=== PATIENT | female | born 1975 | race Caucasian/White ===

== ENCOUNTER 2016-12-27 19:04 | Inpatient (IN) | payer OTHER ==
[2016-12-27] MEDS ORDERED: NS 1,000 ML IV ONE (19:13)
--- NOTE | 2016-12-27 19:15 | EDPHY ---
H & P Time Seen by Provider: 12/27/16 19:13 HPI/ROS: CHIEF COMPLAINT: Abdominal pain HISTORY OF PRESENT ILLNESS: This patient is a 41-year-old female who presents to the Emergency Department complaining of acute onset of severe abdominal pain beginning after dinner tonight. Immediately after eating 1 slice of pizza, she had sudden onset of severe generalized abdominal pain. She describes the pain as waxing and waning over time, sharp in nature, and migrating throughout her abdomen with radiation bilaterally to her back. She reports associated nausea but no vomiting. She also describes a cold sweat at 1830 associated with the pain. Prior x2, no prior small-bowel obstruction. Denies diarrhea, fever, dysuria, recent infection, or any additional complaints. IUD in place, LNMP two weeks ago. She is currently breast-feeding. REVIEW OF SYSTEMS: Constitutional: No fever, no chills Eyes: No visual changes ENT: No sore throat Respiratory: No cough, no shortness of breath Cardiac: No chest pain Gastrointestinal: As in HPI Genitourinary: No hematuria, no dysuria Musculoskeletal: No leg pain or swelling Skin: No rash Neurological: No headache, no weakness Psychiatric: No depression Past Medical/Surgical History: Two prior C-sections; no additional abdominal surgeries. Social History: at bedside. Smoking Status: Never smoked Physical Exam: General Appearance: Alert, appears in pain Eyes: Pupils equal and round, no conjunctival pallor or injection ENT, Mouth: Mucous membranes moist Neck: Normal inspection Respiratory: Lungs are clear to auscultation Cardiovascular: Regular rate and rhythm Gastrointestinal: Abdomen is soft, diffuse tenderness with rebound tenderness, normal bowel sounds Neurological: A&O, nonfocal exam Skin: Warm and dry, no rash Extremities: Normal inspection Psychiatric: Mood and affect normal Constitutional: Initial Vital Signs Temperature (C) 36.8 C 12/27/16 19:04 Heart Rate 49 L 12/27/16 19:04 Respiratory Rate 22 H 12/27/16 19:04 O2 Sat (%) 99 12/27/16 19:04 O2 Delivery Mode Room Air Allergies/Adverse Reactions: No Known Allergies Allergy (Unverified 12/27/16 19:33) Home Medications: Medication Instructions Recorded Herbals/Supplements -Info Only 1 ea PO DAILY 12/27/16 Medical Decision Making - Diagnostics Imaging Results: Imaging Impressions Abdomen CT 12/27/16 19:42 Impression: 1. Abnormal appearance of small bowel with findings most concerning for a developing mechanical obstruction, perhaps on the basis of adhesions associated with the prior section. A superimposed enteritis is not excluded given the patient's recent postprandial development of symptoms. 2. Tiny volume of ascites. Findings were discussed with LEESA RUIZ MD at 20:33, on 12/27/2016. ED Course/Re-evaluation: 41-year-old female presents with complaint of acute onset abdominal pain with radiation to her back; waxing and waning and sharp in nature. On exam, she has an acute abdomen with diffuse abdominal tenderness with rebound tenderness. CT of the abdomen is indicated at this time. Will also proceed with labs. IV established. 6mg IV morphine and 4mg IV Zofran administered. Labs obtained and are unremarkable. LFTs are normal. test is negative. 2033: CT of the abdomen is suggestive of small bowel obstruction as reported to me by Dr. Stout, radiology. Results discussed with the patient and her . 2101: Consultation with Dr. Gifford, general surgery, who will admit the patient. An NG tube was placed by the ED RN. Multiple doses of IV narcotics require to control this patient's severe pain. Abdominal exam remains unchanged on transfer to the floor. Differential Diagnosis: Differential diagnosis for the patient's abdominal pain includes but is not limited to: ovarian cyst, PID, ovarian torsion, UTI, ectopic , cholecystitis, and appendicitis. - Data Points Laboratory Results: Laboratory Results 12/27/16 19:17 12/27/16 19:17 Medications Given: Discontinued Medications Sodium Chloride (Ns) 1,000 mls @ 0 mls/hr IV ONCE ONE; Wide Open PRN Reason: Protocol Stop: 12/27/16 19:14 Last Admin: 12/27/16 19:24 Dose: 1,000 mls Morphine Sulfate (Morphine) 6 mg IVP EDNOW ONE Stop: 12/27/16 19:41 Last Admin: 12/27/16 19:52 Dose: 6 mg Morphine Sulfate (Morphine) 6 mg IVP EDNOW ONE Stop: 12/27/16 20:41 Last Admin: 12/27/16 20:41 Dose: 6 mg Ondansetron HCl (Zofran) 4 mg IVP EDNOW ONE Stop: 12/27/16 19:41 Last Admin: 12/27/16 19:52 Dose: 4 mg Departure - Departure Disposition: [facility] Inpatient Acute Clinical Impression: Small bowel obstruction Condition: Fair Report Scribed for: Leesa Ruiz Report Scribed by: Shereen Ponce Date of Report: 12/27/16 Time of Report: 19:32 Physician Review and Approval Statement: 12/27/16 19:33 Portions of this note were transcribed by a medical unit secretary. I personally performed a history, physical exam, medical decision making, and confirmed accuracy of information the transcribed note.
[2016-12-27 19:24] LABS: % IMMATURE GRANULYOCYTES 0.3 % (0.0-1.1); ABSOLUTE IMMATURE GRANULOCYTES 0.03 10^3/uL (0.00-0.10); ADD DIFF? NO; ADD MORPH? NO; ADD SCAN? NO; ATYPICAL LYMPHOCYTE FLAG 30 (0-99); FRAGMENT RBC FLAG 0 (0-99); HEMATOCRIT 40.9 % (38.0-47.0); HEMOGLOBIN 13.8 g/dL (12.6-16.3); LEFT SHIFT FLG 0 (0-99); LIPEMIA HEMOLYSIS FLAG 80 (0-99); MEAN CELL HEMOGLOBIN 28.9 pg (27.9-34.1); MEAN CELL HEMOGLOBIN CONCENTR. 33.7 g/dL (32.4-36.7); MEAN CELL VOLUME 85.6 fL (81.5-99.8); PLATELET CLUMPS FLAG 0 (0-99); PLATELET COUNT 200 10^3/uL (150-400); RED BLOOD CELL COUNT 4.78 10^6/uL (4.18-5.33); RED CELL DISTRIBUTION WIDTH 12.5 % (11.5-15.2)
[2016-12-27 19:39] LABS: ALANINE AMINOTRANSFERASE 28 IU/L (9-52); ALBUMIN 4.1 g/dL (3.5-5.0); ALKALINE PHOSPHATASE 71 IU/L (38-126); ANION GAP 12 mEq/L (8-16); ASPARTATE AMINOTRANSFERASE 21 IU/L (14-46); BILIRUBIN,TOTAL 0.6 mg/dL (0.1-1.4); BILIRUBIN-CONJUGATED 0.4 mg/dL (0.0-0.5); BILIRUBIN-UNCONJUGATED 0.2 mg/dL (0.0-1.1); CALCIUM 9.4 mg/dL (8.5-10.4); CARBON DIOXIDE 20 mEq/l (22-31); CHLORIDE 106 mEq/L (97-110); CREATININE 0.8 mg/dL (0.6-1.0); GLOMERULAR FILTRATION RATE > 60; GLUCOSE 123 mg/dL (70-100); POTASSIUM 3.4 mEq/L (3.5-5.2); SODIUM 138 mEq/L (134-144); TOTAL PROTEIN 6.8 g/dL (6.3-8.2)
[2016-12-27] MEDS ORDERED: ONDANSETRON 4 MG/2 ML VIAL IVP ONE (19:40)
[2016-12-27] MEDS ORDERED: IOPAMIDOL (ISOVUE-300) 100 ML BTL ONE (19:48)
[2016-12-27] MEDS ORDERED: BENZOCAINE UNIT DOSE SPRAY HURRICAINE MM ONE (21:42)
[2016-12-27] MEDS ORDERED: HYDROmorphONE/DILAUDID 1 MG/ML SYR IVP PRN (21:53)
[2016-12-27] MEDS: KETOROLAC 15 MG/1 ML SDV IVP SCH (23:04)
[2016-12-27] MEDS: ONDANSETRON 4 MG/2 ML VIAL IVP PRN (23:04)
[2016-12-27] MEDS: D5W 1/2 NS W/ 20 KCl/L 1,000 ML IV SCH (23:08)
--- NOTE | 2016-12-27 23:08 | GCON ---
[f rep st] CONSULTATION DATE OF CONSULTATION: 12/27/2016 REFERRING PHYSICIAN: Leesa Clifford MD REASON FOR EVALUATION: Small-bowel obstruction. HISTORY OF PRESENT ILLNESS: 41-year-old healthy female, with a significant history for 2 prior section deliveries, presents to the hospital with a sudden onset of severe crampy abdominal pain starting around dinnertime. She describes multiple episodes of nausea and emesis. Her last bowel movement was earlier this afternoon. She has not had flatus throughout the day. No prior history of obstructive episodes. No voiding complaints. PAST MEDICAL HISTORY: None. PAST SURGICAL HISTORY: x2. MEDICATIONS: None. ALLERGIES: No known drug allergies. SOCIAL HISTORY: No alcohol, no tobacco. She is . She is mother of two. FAMILY HISTORY: Noncontributory. REVIEW OF SYSTEMS: Notable for active GI complaints only, otherwise a negative 10-point review of systems. PHYSICAL EXAM: VITAL SIGNS: Temperature 36.8, blood pressure 118/76, pulse 48 , respirations 20. GENERAL APPEARANCE: The patient is alert, appropriate, moving frequently secondary to crampy discomfort. EYES: Anicteric. NECK: No cervical lymphadenopathy. HEART: Regular without murmurs. LUNGS: Clear bilaterally. ABDOMEN: Soft, mild diffuse tenderness, without rebound or guarding. Well-healed Pfannenstiel incision, without abdominal hernias or inguinal hernias. EXTREMITIES: Unremarkable. NEUROLOGIC: Exam unremarkable. LABORATORY DATA: White count 9, hemoglobin 14, platelets of 200. Electrolytes : Sodium 138, potassium 3.4, chloride 106, CO2 20, BUN 13, creatinine 0.8, glucose 123. Liver enzymes within reference range. test negative. CT images directly reviewed on PACS and with family, notable dilated small- bowel loops, with a transition zone in the low central pelvis, with decompressed small-bowel loops. No free air. Notable stool throughout colon. IMPRESSION: Partial small-bowel obstruction, likely adhesive in nature. RECOMMENDATION: Patient is being admitted for fluid rehydration and pain control. Recommend nasogastric tube placement. If no clinical resolution within 48-72 hours or deterioration in interim time, consideration for a diagnostic laparoscopy will be entertained at that time. Findings and recommendations were discussed with the patient and at length. All questions were entertained. /[id number]/MODL MTDD
[2016-12-28] MEDS: ONDANSETRON 4 MG/2 ML VIAL IVP PRN ×5 (03:34→20:40)
[2016-12-28] MEDS: KETOROLAC 15 MG/1 ML SDV IVP SCH ×4 (04:26→23:45)
[2016-12-28] MEDS: D5W 1/2 NS W/ 20 KCl/L 1,000 ML IV SCH ×3 (04:28→23:45)
--- NOTE | 2016-12-28 07:41 | SOAPPROG ---
SOAP Progress Note Assessment/Plan: Assessment:no new issues overnight. less pain. no flatus. nausea x1. avss. comfortable. abd less distended, mild diffuse tenderness without rebound or guarding. KUB - dilated SB, small colon air. PSBO - cont NG drainage/ supportive care. discussed plan with patient. if no resolution 2-3 days, will pursue lap BAKARI at that time. Plan: 12/28/16 07:39 Objective: Vital Signs Temp Pulse Resp BP Pulse Ox 36.3 C 45 L 16 114/67 97 12/27/16 22:52 12/28/16 03:56 12/28/16 03:56 12/28/16 03:56 12/28/16 03:56 12/27/16 12/28/16 12/29/16 05:59 05:59 05:59 Intake Total 1684 Output Total 600 Balance 1084 ICD10 Worksheet Patient Problems: Problems Problem Status Onset Small bowel obstruction Acute
[2016-12-28] MEDS: PROMETHAZINE HCL 25 MG/ML INJ IVP PRN ×3 (13:47→21:20)
[2016-12-29] MEDS: KETOROLAC 15 MG/1 ML SDV IVP SCH ×3 (05:08→17:08)
[2016-12-29] MEDS: ONDANSETRON 4 MG/2 ML VIAL IVP PRN ×3 (05:08→13:03)
--- NOTE | 2016-12-29 09:26 | SOAPPROG ---
SOAP Progress Note Assessment/Plan: Assessment: no new issues overnight. less pain. one small flatus. no further nausea after phenergan. avss. comfortable. abd unchanged distention. improved diffuse tenderness without rebound or guarding. KUB - dilated SB, less colon air. PSBO - cont NG drainage/supportive care. discussed plan with patient regarding obs vs lap judson. she prefers to move forward this evening with surgery. anticipated recovery reviewed. all questions answered. Plan: 12/28/16 07:39 12/29/16 09:24 Objective: Vital Signs Temp Pulse Resp BP Pulse Ox 36.7 C 48 L 16 114/64 96 12/29/16 08:40 12/29/16 08:40 12/29/16 08:40 12/29/16 08:40 12/29/16 08:40 12/28/16 12/29/16 12/30/16 05:59 05:59 05:59 Intake Total 1684 2900 Output Total 600 1800 Balance 1084 1100 ICD10 Worksheet Patient Problems: Problems Problem Status Onset Small bowel obstruction Acute
[2016-12-29] MEDS ORDERED: ACETAMINOPHEN 325 MG TAB PO PRN ×2 (09:29→09:41)
[2016-12-29] MEDS: D5W 1/2 NS W/ 20 KCl/L 1,000 ML IV SCH (12:58)
[2016-12-29] MEDS ORDERED: BUPIVACAINE/EPI 0.5% 30 ML SDV ONE (16:01)
[2016-12-29] MEDS ORDERED: ceFAZolin 2 GM/DEXTROSE 100 ML IV ONE (17:31)
[2016-12-29] MEDS ORDERED: MIDAZOLAM 2 MG/2 ML VIAL ONE (18:04)
[2016-12-29] MEDS ORDERED: MIDAZOLAM 2 MG/2 ML VIAL IVP ONE (18:05)
--- NOTE | 2016-12-29 18:07 | PDANEPAE ---
ANE Past Medical History - Pulmonary History Hx Oxygen in Use at Home: No - Endocrine History Hx Diabetes: No - Chronic Pain History Chronic Pain: No ANE Patient History - Allergies Allergies/Adverse Reactions: No Known Allergies Allergy (Unverified 12/27/16 19:33) - Home Medications Home Medications: Herbals/Supplements -Info Only 1 ea PO DAILY 12/27/16 [Last Taken 12/27/16] - NPO status NPO Since - Liquids (Date): 12/29/16 NPO Since - Liquids (Time): 08:00 NPO Since - Solids (Date): 12/27/16 - Anes Hx Anes Hx: no prior problems - Smoking Hx Smoking Status: Never smoked ANE Labs/Vital Signs - Labs Result Diagrams: 12/27/16 19:17 12/27/16 19:17 - Vital Signs Blood Pressure: 117/65 Heart Rate: 55 Respiratory Rate: 16 O2 Sat (%): 97 Height: 170.18 cm Weight: 63.503 kg ANE Physical Exam - Airway Neck exam: FROM Mallampati Score: Class 1 Mouth exam: normal dental/mouth exam - Pulmonary Pulmonary: no respiratory distress, no rales or rhonchi, clear to auscultation - Cardiovascular Cardiovascular: regular rate and rhythym, no murmur, rub, or gallop - ASA Status ASA Status: II ANE Anesthesia Plan Anesthesia Plan: general endotracheal anesthesia
[2016-12-29] MEDS ORDERED: PROPOFOL 200 MG/20 ML VIAL ONE (18:11)
[2016-12-29] MEDS ORDERED: fentaNYL 100 MCG/2 ML INJ ONE ×3 (18:11→20:04)
[2016-12-29] MEDS ORDERED: LIDOCAINE 2% 5 ML SDV ONE (18:12)
[2016-12-29] MEDS ORDERED: KETOROLAC 30 MG/1 ML SDV ONE (18:12)
[2016-12-29] MEDS ORDERED: DEXAMETHASONE 4 MG/ML VIAL ONE ×2 (18:12)
[2016-12-29] MEDS ORDERED: SUGAMMADEX SODIUM 200 MG/2 ML VIAL IVP ONE (18:12)
[2016-12-29] MEDS ORDERED: ROCURONIUM 50 MG/5 ML VIAL ONE ×2 (18:12→19:54)
[2016-12-29] MEDS ORDERED: ONDANSETRON 4 MG/2 ML VIAL ONE (18:12)
[2016-12-29] MEDS ORDERED: NALOXONE HCL 0.4 MG/ML INJ IVP PRN (18:47)
[2016-12-29] MEDS ORDERED: LR 500 ML IV PRN (18:47)
[2016-12-29] MEDS ORDERED: fentaNYL 100 MCG/2 ML INJ IVP PRN (18:47)
[2016-12-29] MEDS ORDERED: HYDROmorphONE/DILAUDID 1 MG/ML SYR IVP PRN ×2 (18:47→21:16)
[2016-12-29] MEDS ORDERED: PROMETHAZINE HCL 25 MG/ML INJ IVP PRN (18:47)
[2016-12-29] MEDS ORDERED: MEPERIDINE 25 MG/ML SYR IVP PRN (18:47)
[2016-12-29] MEDS ORDERED: ONDANSETRON 4 MG/2 ML VIAL IVP PRN (18:47)
[2016-12-29] MEDS ORDERED: KETAMINE 100 MG/10 ML SYR ONE (20:04)
--- NOTE | 2016-12-29 21:13 | POSTOPPROG ---
Post Op Note Date of Operation: 12/29/16 Surgeon: Franco Gifford Anesthesiologist: Colleen Anesthesia: GET(General Endotracheal) Pre-op Diagnosis: Small Bowel Obstruction Post-op Diagnosis: Incarcerated ventral hernia with ischemic bowel Procedure: Lap repair incar ventral hernia, lap SBR Findings: incar preperitoneal hernia from prior c/s with ischemic sb Inf/Abcess present in the surg proc area at time of surgery?: No EBL: Minimal Complications: no immediate Specimen(s): small bowel
--- NOTE | 2016-12-29 22:22 | POSTANESTH ---
Post Anesthetic Evaluation Cardiovascular Status: Normal, Stable, Similar to Pre-Op Cond Respiratory Status: Normal, Stable, Similar to Pre-op Cond. Level of Consciousness/Mental Status: Can Participate in Eval, Mildly Sleepy, Arousable Pain Control: Adequate, Prn Tx Ordered Nausea/Vomiting Control: Adequate, Prn Tx Ordered Complications Possibly Related to Anesthesia: None Noted
[2016-12-30] MEDS: KETOROLAC 15 MG/1 ML SDV IVP SCH ×4 (00:09→17:28)
--- NOTE | 2016-12-30 04:56 | GOP ---
[f rep st] OPERATIVE REPORT DATE OF OPERATION: 12/29/2016 SURGEON: Franco Gifford MD ANESTHESIOLOGIST: Dr. Yunior Macias. PREOPERATIVE DIAGNOSIS: Small bowel obstruction. POSTOPERATIVE DIAGNOSIS: Incarcerated ventral hernia with ischemic small bowel. PROCEDURE PERFORMED: 1. Laparoscopic repair of incarcerated ventral hernia. 2. Laparoscopic small bowel resection. 3. Use of intraoperative fluoroscopy or other. FINDINGS: INDICATIONS: A 41-year-old female, admitted with a small bowel obstruction. She has undergone a pr ior . She has failed a trial of nasogastric decompression. She is undergoing a surgical r epair at this time. Risks and benefits were explained of bleeding, infection, open conversion, adwoa l injury, indications for, bowel resection as well as recurrence, and all questions were answered. She desires to proceed. DESCRIPTION OF PROCEDURE: After general anesthesia was induced, the abdomen was entered with a Stacey ss needle through the infraumbilical position. This was followed by a 5 mm trocar placement. Two a dditional left lower quadrant 5 mm ports were inserted. A small area of serosal disruption was note d from the Veress needle. This was oversewn with 2-0 [id number] Vicryl sutures. Abdominal exp loration disclosed an incarcerated preperitoneal abdominal hernia from her prior Pfannenstiel incisi on. Through the midline closure portion, there were 2 associated holes which needed to be connected to allow for the bowel to be eviscerated back into the abdominal cavity. The portion of the incarc erated small bowel was noted to be ischemic on initial appearance. This bowel was left intact withi n the abdominal cavity, as the defect was over sewn and closed using 2 competing V-Loc sutures. The midline defect was closed vertically and placing the sac into the V-Loc sutures. The needle broke off from the thread on the initial placement. In retrieving the needle from the abdominal wall, the needle had become dislodged in the abdominal cavity. Intraoperative fluoroscopy was utilized to ul timately find the retained needle sitting high within the left upper quadrant of the abdominal cavit y. After these maneuvers had all been completed, the small bowel was re-inspected, showing had no e vidence of improvement with ongoing ischemic changes. The midline incision was partially extended. The bowel was eviscerated and the area was noted to be completely flaccid without evidence of peris talsis. A [id number] anastomosis was created in a stapled fashion, allowing for this section of b owel to be excised. The anastomosis returned back to the abdominal cavity. The abdomen was reinsuf flated. The abdominal exploration showed the anastomosis to be pink and healthy, in good orientatio n. There was no evidence of bleeding or a bile spillage at any point. The defect appeared complete ly closed. Trocars were removed under direct visualization. The infraumbilical midline fascia was closed with a running 0 Vicryl suture. The wounds were closed with Monocryl, secured by Dermabond. The patient was taken to recovery uneventfully. /[id number]/MODL
[2016-12-30 05:30] LABS: HEMATOCRIT 40.6 % (38.0-47.0); HEMOGLOBIN 13.4 g/dL (12.6-16.3); MEAN CELL HEMOGLOBIN 29.1 pg (27.9-34.1); MEAN CELL VOLUME 88.1 fL (81.5-99.8); RED BLOOD CELL COUNT 4.61 10^6/uL (4.18-5.33); RED CELL DISTRIBUTION WIDTH 12.7 % (11.5-15.2)
[2016-12-30 05:43] LABS: ANION GAP 9 mEq/L (8-16); CALCIUM 8.2 mg/dL (8.5-10.4); CARBON DIOXIDE 22 mEq/l (22-31); CHLORIDE 104 mEq/L (97-110); CREATININE 0.7 mg/dL (0.6-1.0); GLOMERULAR FILTRATION RATE > 60; GLUCOSE 130 mg/dL (70-100); POTASSIUM 4.1 mEq/L (3.5-5.2); SODIUM 135 mEq/L (134-144)
--- NOTE | 2016-12-30 09:41 | SOAPPROG ---
SOAP Progress Note Assessment/Plan: Assessment: POD 1 s/p Lap repair incarcerated ventral hernia w/ small bowel resection. Slept well, currently resting in bed. Pain controlled. NG tube in place- flushes easily. Bilious drainage output 600cc, no flatus. afeb, VSS, 95% RA, A& O x 3, Abd: mildly distended with appropriate tenderness. Incision clean, dry, intact. WBC 11.49 (8.76), Lytes normal A/P: leave NG tube today, once passing gas will plan to remove NG. Encouraged ambulation. Home once NG tube out and tolerating diet. Plan: 12/30/16 09:38 Objective: Vital Signs Temp Pulse Resp BP Pulse Ox 36.8 C 66 16 104/63 95 12/30/16 08:48 12/30/16 08:48 12/30/16 08:48 12/30/16 08:48 12/30/16 08:48 Laboratory Results 12/30/16 04:53 12/30/16 04:53 12/29/16 12/30/16 12/31/16 05:59 05:59 05:59 Intake Total 2900 4600 Output Total 1800 3170 Balance 1100 1430 ICD10 Worksheet Patient Problems: Problems Problem Status Onset Small bowel obstruction Acute
[2016-12-30] MEDS: D5W 1/2 NS W/ 20 KCl/L 1,000 ML IV SCH (12:05)
[2016-12-30 19:19] VITALS: RESP 16
[2016-12-31] MEDS: KETOROLAC 15 MG/1 ML SDV IVP SCH ×2 (00:40→05:33)
[2016-12-31 08:35] VITALS: BP 98/56; PULSE 64; TEMP 98.8; O2SAT 94
--- NOTE | 2016-12-31 11:24 | SOAPPROG ---
SOAP Progress Note Assessment/Plan: Assessment: POD 2 s/p Lap repair incarcerated ventral hernia w/ small bowel resection. Feels well. No new issues overnight. Multiple BM's- NG removed yesterday. Tolerating diet. Pain controlled. afeb, VSS, A&O x 3, Abd: mildly distended with minimal tenderness. Incision clean, dry, intact. Plan: D/c home today. Follow up with [facility] in 2 weeks. See orders Plan: 12/30/16 09:38 12/31/16 11:23 Objective: Vital Signs Temp Pulse Resp BP Pulse Ox 37.1 C 64 16 98/56 L 94 12/31/16 08:32 12/31/16 08:32 12/31/16 08:32 12/31/16 08:32 12/31/16 08:32 Laboratory Results 12/30/16 04:53 12/30/16 04:53 12/30/16 12/31/16 01/01/17 05:59 05:59 05:59 Intake Total 4600 2321 Output Total 3170 Balance 1430 2321 ICD10 Worksheet Patient Problems: Problems Problem Status Onset Small bowel obstruction Acute
--- NOTE | 2017-01-01 13:55 | GDS ---
[f rep st] DISCHARGE SUMMARY REASON FOR ADMISSION: Small bowel obstruction. HOSPITAL COURSE: The patient is a 41-year-old female with a significant history of 2 prior C-sections. She presented to the hospital with abdominal pain and multiple episodes of nausea and vomiting. She had a bowel movement earlier that afternoon, but due to the severity of her pain presented to the emergency room for further evaluation. Upon arrival, she was found to have a partial small bowel obstruction, which was felt to be secondary to adhesions. She had an NG tube placed with no resolution of the symptoms. After 48 hours, it was decided to move forward with surgery. She was taken to the operating room on December 29, 2016, and underwent laparoscopic repair of an incarcerated ventral hernia, laparoscopic small bowel resection, and intraoperative fluoroscopy by Dr. Gifford. You can see the full details of the procedure in the full operative note. The patient tolerated the procedure well. As of postoperative day 1, she was making good progress. By that afternoon, her NG tube was removed after she had had a large bowel movement. She was again monitored overnight and advanced her diet, which she tolerated well, and was discharged home on postoperative day 2. Her home medications were resumed. She was provided with pain medications as well, with plans to see her back in our office in 2 weeks. /[id number]/MODL MTDD
== END 2016-12-31 11:41 | disposition home or self-care (01) | DRG 330 ==
LOC: F1N 22:30
PROVIDERS: ADMIT Surgery; ATTEND Surgery
PROC: 0DT84ZZ Resection of Small Intestine, Percutaneous Endoscopic Approach (ICD-10-PCS; principal; 2016-12-29 17:15)
PROC: 0WQF4ZZ Repair Abdominal Wall, Percutaneous Endoscopic Approach (ICD-10-PCS; principal; 2016-12-29 17:15)
DX: K55.019 Acute (reversible) ischemia of small intestine, extent unspecified (principal); K43.6 Other and unspecified ventral hernia with obstruction, without gangrene
CPT/HCPCS: 96374; J0690; J1100; J1170; J1885; J2250; J2405; J2550; J2704; J3010; Q9967

== ENCOUNTER 2018-03-06 10:26 | Emergency (ER) | payer OTHER ==
[2018-03-06] MEDS ORDERED: NS 1,000 ML IV ONE ×2 (10:48→11:04)
--- NOTE | 2018-03-06 10:48 | EDPHY ---
General - History Smoking Status: Never smoked Time Seen by Provider: 03/06/18 10:33 Narrative: 1111: I assessed this patient at the request of YAMILA Farr for the patients hypotension and bradycardia. She has had three syncopal episodes today associated with nausea, vomiting, and feeling clammy prior to the syncope. The patient reports that she has had similar symptoms as a teenager. Her symptoms are consistent with vasovagal syncope; echocardiogram ordered. 1124: I consulted with Dr. Ayala, income tax consultant, regarding this patient. She is comfortable with my plan for an echocardiogram. (Ayo Bob) CHIEF COMPLAINT: Low back injury HISTORY OF PRESENT ILLNESS: Patient presents by private vehicle with her spouse at bedside. She has 2 complaints. The 1st is low back pain. She was bending over working on her child bed yesterday when she felt a sudden onset of pain in the low back. This is the lower lumbar into the upper sacrum. [id number] pain that was worse when she woke this morning. No radiating pain. No numbness, tingling, weakness or incontinence. Secondary complaint of feeling sweaty, clammy, cool, nauseated and vomiting when she stood up this morning. This happened several times and her spouse witnesses. He describes some lack of awareness from the patient denies any generalized clonic tonic seizure activity. Difficult for him to describe this. She has no chest pain during any of this. No other associated complaints or modifying factors. LMP starting now. REVIEW OF SYSTEMS: 10 systems were reviewed and negative with the exception of the elements mentioned in the history of present illness. PCP: Dr. Rosy Ahumada SPECIALISTS: None PAST MEDICAL HISTORY: Prior history of syncopal episodes PAST SURGICAL HISTORY: C sections SOCIAL HISTORY: Nonsmoker. Lives independently with her spouse FAMILY HISTORY: Uncomplicated EXAMINATION: General Appearance: Alert, no distress Head: normocephalic, atraumatic Eyes: Pupils equal and round, no conjunctival pallor or injection ENT, Mouth: Mucous membranes moist Neck: Normal inspection, supple, non-tender Respiratory: Lungs are clear to auscultation Cardiovascular: Bradycardic rate with regular rhythm. No murmur. Good signs of perfusion. Gastrointestinal: Abdomen is soft and nontender Back: non-tender, no bony abnormalities Neurological: GCS 15 A&O, nonfocal, normal gait. Patellar reflex symmetric 2+ . Strength is symmetric in the hips, knees and ankles at 5/5. Skin: Warm and dry, no rash Extremities: Nontender, no pedal edema Psychiatric: Mood and affect normal DIFFERENTIAL DIAGNOSES: Including but not limited to vasovagal, near syncope, syncope, symptomatic bradycardia, conduction delay, aortic stenosis, dehydration, sprain, strain MDM: 10:50 a.m. Acute low back strain yesterday with subsequent development of near syncopal symptoms today. She has been clammy, sweaty, and nauseated with some vomiting. She has no focal deficits on her neuro exam. She is ambulatory without difficulty. She does have tenderness of the low back without any radicular signs, or evidence of acute cord compression. I have ordered laboratory studies , EKG and IV fluid after orthostatic vitals. I have also ordered x-ray of the lumbar spine. 11:05 a.m. Notified by RN. Patient did have a positive orthostatic vital signs test. She drops 20 points on her pressure rate has changes well. I have re-evaluated the patient. At this time she is awake alert no acute distress. Her vital signs do reveal hypertension with systolic of 80 and heart rate of 42 beats per minute. I discussed with Dr. Bob he will evaluate the patient as well. 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 11:45 a.m. Echo is currently being performed. 12:00 p.m. I have re-evaluated the patient. She is feeling much better with IV fluid resuscitation. Still pain free. Laboratory studies unremarkable. 12:[address] Bob has discussed the echo results with Dr. Maile Ayala. He has notified the patient of normal echocardiogram. We will ambulate the patient plan for discharge home. 1:00 p.m. I have re-evaluated the patient. We discussed the above echo findings. We discussed laboratory studies. She has ambulated without any difficulty. We discussed discharge home with increase fluid intake, follow up with Cardiology and primary care physician. We discussed ED precautions for any chest pain, shortness of breath or return of her symptoms for we also discussed symptomatic care for for low back strain versus sprain. We discussed ED precautions for numbness, tingling, weakness or incontinence. She is discharged home fully ambulatory in stable condition. SUPERVISION: Patient was evaluated and examined in conjunction with my secondary supervising physician as documented. We have both examined the patient. CONSULTATION: Cardiology by telephone, Dr. Maile Ayala ([facility]) - Diagnostics Imaging Results: Imaging Impressions Lumbar Spine X-Ray 03/06/18 10:50 Impression: No acute findings in the lumbar spine. Chest X-Ray 03/06/18 11:13 Impression: No acute findings in the chest. - Objective Vital Signs: Initial Vital Signs Temperature (C) 97.5 F 03/06/18 10:29 Heart Rate 66 03/06/18 10:29 Respiratory Rate 18 03/06/18 10:29 Blood Pressure 99/69 L 03/06/18 10:29 O2 Sat (%) 96 03/06/18 10:29 O2 Delivery Mode Room Air Allergies/Adverse Reactions: No Known Allergies Allergy (Verified 03/06/18 10:27) Home Medications: Medication Instructions Recorded NK [No Known Home Meds] 03/06/18 Laboratory Results: Laboratory Results 03/06/18 11:00 03/06/18 11:00 03/06/18 03/06/18 03/06/18 11:05 11:00 11:00 WBC RBC Hgb Hct MCV MCH MCHC RDW Plt Count MPV Neut % (Auto) Lymph % (Auto) [place] % (Auto) Eos % (Auto) Baso % (Auto) Nucleat RBC Rel Count Absolute Neuts (auto) Absolute Lymphs (auto) Absolute Monos (auto) Absolute Eos (auto) Absolute Basos (auto) Absolute Nucleated RBC Immature Gran % Seg Neutrophils % Band Neutrophils % Lymphocytes % Monocytes % Eosinophils % Basophils % Metamyelocytes % Myelocytes % Promyelocytes % Blast Cells % Immature Gran # Absolute Seg Neuts Absolute Band Neuts Absolute Lymphocytes Absolute Monocytes Absolute Eosinophils Absolute Basophils Absolute Metamyelocyte Absolute Myelocytes Absolute Promyelocytes Absolute Plasma Cells Nucleated RBCs Atypical Lymphocytes Absolute Blast Cells Plasma Cells % Platelet Estimate Sodium 139 mEq/L mEq/L (135-145) Potassium 4.1 mEq/L mEq/L (3.3-5.0) Chloride 107 mEq/L mEq/L (97-110) Carbon Dioxide 21 mEq/l L mEq/l (22-31) Anion Gap 11 mEq/L mEq/L (8-16) BUN 14 mg/dL mg/dL (7-23) Creatinine 0.6 mg/dL mg/dL (0.6-1.0) Estimated GFR > 60 Glucose 126 mg/dL H mg/dL (70-100) Calcium 8.7 mg/dL mg/dL (8.5-10.4) POC Troponin I 0.01 ng/mL ng/mL (0.00-0.08) Prolactin 11.7 ng/mL ng/mL (3.0-18.6) Beta HCG, Qual NEGATIVE 03/06/18 11:00 WBC 9.56 10^3/uL H 10^3/uL (3.80-9.50) RBC 5.17 10^6/uL 10^6/uL (4.18-5.33) Hgb 14.9 g/dL g/dL (12.6-16.3) Hct 44.4 % % (38.0-47.0) MCV 85.9 fL fL (81.5-99.8) MCH 28.8 pg pg (27.9-34.1) MCHC 33.6 g/dL g/dL (32.4-36.7) RDW 12.7 % % (11.5-15.2) Plt Count 182 10^3/uL 10^3/uL (150-400) MPV 10.3 fL fL (8.7-11.7) Neut % (Auto) Not Reported Lymph % (Auto) Not Reported [place] % (Auto) Not Reported Eos % (Auto) Not Reported Baso % (Auto) Not Reported Nucleat RBC Rel Count Not Reported Absolute Neuts (auto) Not Reported Absolute Lymphs (auto) Not Reported Absolute Monos (auto) Not Reported Absolute Eos (auto) Not Reported Absolute Basos (auto) Not Reported Absolute Nucleated RBC Not Reported Immature Gran % Not Reported Seg Neutrophils % 81.0 % % Band Neutrophils % 5.0 % % Lymphocytes % 7.0 % % Monocytes % 6.0 % % Eosinophils % 0.0 % % Basophils % 1.0 % % Metamyelocytes % 0.0 % % Myelocytes % 0.0 % % Promyelocytes % 0.0 % % Blast Cells % 0.0 % % Immature Gran # Not Reported Absolute Seg Neuts 7.74 10^/uL H 10^/uL (1.70-6.50) Absolute Band Neuts 0.48 10^3/uL 10^3/uL (0.00-0.70) Absolute Lymphocytes 0.67 10^3/uL L 10^3/uL (1.00-3.00) Absolute Monocytes 0.57 10^3/uL 10^3/uL (0.30-0.80) Absolute Eosinophils 0.00 10^3/uL L 10^3/uL (0.03-0.40) Absolute Basophils 0.10 10^3/uL 10^3/uL (0.02-0.10) Absolute Metamyelocyte 0.00 10^3/mL 10^3/mL (0.00-0.00) Absolute Myelocytes 0.00 10^3/mL 10^3/mL (0.00-0.00) Absolute Promyelocytes 0.00 10^3/uL 10^3/uL (0.00-0.00) Absolute Plasma Cells 0.00 10^3/uL 10^3/uL (0.00-0.00) Nucleated RBCs 0 /100 WBC /100 WBC (0-0) Atypical Lymphocytes 1+ H Absolute Blast Cells 0.00 10^3/uL 10^3/uL (0.00-0.00) Plasma Cells % 0.0 % % Platelet Estimate ADEQUATE (ADEQ) Sodium Potassium Chloride Carbon Dioxide Anion Gap BUN Creatinine Estimated GFR Glucose Calcium POC Troponin I Prolactin Beta HCG, Qual Medications Given: Discontinued Medications Sodium Chloride (Ns) 1,000 mls @ 0 mls/hr IV EDNOW ONE; Wide Open PRN Reason: Protocol Stop: 03/06/18 10:49 Last Admin: 03/06/18 11:10 Dose: 1,000 mls Sodium Chloride (Ns) 1,000 mls @ 0 mls/hr IV EDNOW ONE; Wide Open PRN Reason: Protocol Stop: 03/06/18 11:05 Last Admin: 03/06/18 11:10 Dose: 1,000 mls Point of Care Test Results: Chemistry 03/06/18 11:05 POC Troponin I 0.01 ng/mL ng/mL (0.00-0.08) Departure - Departure Disposition: Home, Routine, Self-Care Clinical Impression: Vasovagal near syncope, Orthostasis, Bradycardia Low back strain Qualifiers: Encounter type: initial encounter Qualified Code(s): S39.012A - Strain of muscle, fascia and tendon of lower back, initial encounter Condition: Good Instructions: Syncope (ED), Low Back Strain (ED), Bradycardia (ED) Additional Instructions: 1. Increase fluid intake 2. Tylenol [id number] for your back pain as needed 3. Warm compresses to the low back 4 times daily needed 4. Contact income tax consultant for outpatient follow-up next week 5. Contact primary care physician for outpatient follow-up next week 6. ED precautions for any return of symptoms, chest pain, numbness, tingling or weakness Referrals: Rosy Ahumada MD [Primary Care Provider] - As per Instructions Maile Ayala MD [Medical Doctor] - As per Instructions
[2018-03-06 11:15] LABS: PLATELET COUNT 182 10^3/uL (150-400)
--- NOTE | 2018-03-06 11:53 | CPEKG ---
Test Reason : OPEN Blood Pressure : / mmHG Vent. Rate : 049 BPM Atrial Rate : 049 BPM P-R Int : 122 ms QRS Dur : 080 ms QT Int : 486 ms P-R-T Axes : 054 055 025 degrees QTc Int : 439 ms Sinus bradycardia Confirmed by Ayo Bob ([id number]) on 03/06/2018 11:53:33 AM Referred By: Confirmed By:Ayo Bob
--- NOTE | 2018-03-06 12:34 | ECHO ---
[email or web address] [address] [address] Main: [phone] Fax: Transthoracic Echocardiogram Name: RACHEL ARIAS MR#: [id number] Study Date: 03/06/2018 Study Time: 12:03 PM Date of : 1975 Age: 42 year(s) Height: 170.2 cm (67 in.) Weight: 63.5 kg (140 lb.) BSA: 1.74 m2 Gender: Female Examination: Echo Indication: Chest Pain Image Quality: Contrast: Requested by: Ayo Bob BP: 81 mmHg/63 mmHg Heart Rate: Rhythm: Indication: Chest Pain Procedure Staff Electrical Worker: Dori Chavez RDCS Reading Physician: Maile Ayala MD Requesting Provider: Ayo Bob Conclusions: Normal size left ventricle. No LV hypertrophy. Normal global systolic LV function. The ejection fraction is estimated to be 65-70 %. No regional wall motion abnormality. Normal diastolic LV function. Upper normal size right ventricle. Normal RV function. Mild tricuspid regurgitation is present. The pulmonary artery pressure is normal. Trivial anterior pericardial effusion. No prior echo Measurements: Chambers Valvular Assessment AV/MV Valvular Assessment TV/PV Normal Normal Normal Name Value Range Name Value Range Name Value Range Ao Krystal (MM): 2.8 cm (2.2 cm-3.7 AV Vmax: 1.47 m/s (1 m/s-1.7 TR Vmax: 2.26 mm/s ( - ) cm) m/s) TR PGmax: 20 mmHg ( - ) IVSd (2D): 0.6 cm (0.6 cm-1.1 AV maxP mmHg ( - ) syst. PAP: 25 mmHg ( - ) cm) AV meanP mmHg ( - ) LVDd (2D): 5.0 cm (3.9 cm-5.3 MV E Vmax: 1.20 m/s ( - ) cm) MV A Vmax: 0.55 m/s ( - ) LVDs (2D): 2.8 cm (2.1 cm-4 MV E/A: 2.18 ( - ) cm) LVPWd (2D): 0.7 cm ( - ) LVEF (MOD4): 66 % (>=55 %) EF Range: 65-70 % Continued Measurements: Patient: RACHEL ARIAS Study Date: 03/06/2018 Page 1 of 2 12:03 PM Chambers Valvular Assessment AV/MV Valvular Assessment TV/PV Name Value Name Value Name Value LADs: 3.3 cm MV E/E' Septal: 13.10 CVP (est.): 5 mmHg MV E/E' Lateral: 10.20 Additional Vessels Name Value Ao Ascendin.0 cm Findings: Left Ventricle: Normal size left ventricle. No LV hypertrophy. Normal global systolic LV function. The ejection fraction is estimated to be 65-70 %. No regional wall motion abnormality. Normal diastolic LV function. Right Ventricle: Upper normal size right ventricle. Normal RV function. Left Atrium: The left atrium is normal in size. Right Atrium: The right atrium is normal in size. Mitral Valve: The mitral valve is normal in appearance and function. Trivial mitral valve regurgitation. Aortic Valve: The aortic valve is normal in appearance and function. The aortic valve is tri-leaflet. Tricuspid Valve: The tricuspid valve is normal in appearance and function. Mild tricuspid regurgitation is present. The pulmonary artery pressure is normal. Pulmonic Valve: The pulmonic valve is normal in appearance and function. Aorta: The aorta is normal. Pericardium: Trivial anterior pericardial effusion. (No Signature Object) Patient: RACHEL ARIAS Study Date: 03/06/2018 Page 2 of 2 12:03 PM [id number]
[2018-03-06 12:48] VITALS: BP 102/73
== END 2018-03-06 13:14 | disposition home or self-care (01) ==
DX: R55 Syncope and collapse (principal); R00.1 Bradycardia, unspecified; M54.5 Low back pain
CPT/HCPCS: 84484-PO